=== PATIENT | female | born 1965 | race Caucasian/White ===

== ENCOUNTER 2021-01-09 14:20 | Emergency (ER) | payer OTHER ==
[2021-01-09] MEDS ORDERED: Boostrix 0.5 ML (Tdap) VIAL ONE (15:36)
== END 2021-01-09 15:50 | disposition home or self-care (01) ==
LOC: MADERS 14:20
DX: S61.211A Laceration without foreign body of left index finger without damage to nail, initial encounter (principal); I10 Essential (primary) hypertension; Z86.711 Personal history of pulmonary embolism; Z79.899 Other long term (current) drug therapy; W26.8XXA Contact with other sharp object(s), not elsewhere classified, initial encounter
CPT/HCPCS: 12001; 90471; 90715

== ENCOUNTER 2023-07-01 12:11 | Emergency (ER) | payer OTHER | END 2023-07-01 13:25 | disposition home or self-care (01) | LOC: MADERS 12:11 | DX: S60.011A Contusion of right thumb without damage to nail, initial encounter (principal); W22.8XXA Striking against or struck by other objects, initial encounter ==

== ENCOUNTER 2024-02-29 17:57 | Emergency (ER) | payer OTHER ==
[2024-02-29] MEDS ORDERED: Ketorolac Tromethamine 60 MG/2 ML VIAL ONE (18:26)
[2024-02-29] MEDS ORDERED: HYDROcodone/Acetaminophen 5/325 mg Tablet ONE (18:26)
== END 2024-02-29 19:27 | disposition home or self-care (01) ==
LOC: MADERS 17:57
DX: M54.50 Low back pain, unspecified (principal); M54.6 Pain in thoracic spine; I10 Essential (primary) hypertension; W18.2XXA Fall in (into) shower or empty bathtub, initial encounter
CPT/HCPCS: 72072; 72100; 72170; 96372; J1885

== ENCOUNTER 2024-04-27 13:02 | Emergency (ER) | payer OTHER ==
[2024-04-27] MEDS ORDERED: Lidocaine 1% w/Epinephrine 1:100K 20 ML VIAL ONE (13:27)
[2024-04-27] MEDS ORDERED: HYDROcodone/Acetaminophen 5/325 mg Tablet ONE (13:47)
[2024-04-27] MEDS ORDERED: Bacitracin 1 PK ONE (13:47)
== END 2024-04-27 15:20 | disposition short-term general hospital (02) ==
LOC: MADERS 13:02
DX: S01.01XA Laceration without foreign body of scalp, initial encounter (principal); I10 Essential (primary) hypertension; V89.2XXA Person injured in unspecified motor-vehicle accident, traffic, initial encounter
CPT/HCPCS: 12001; 99284

== ENCOUNTER 2024-05-06 13:22 | Emergency (ER) | payer OTHER | END 2024-05-06 13:51 | disposition home or self-care (01) | LOC: MADERS 13:22 | DX: S01.01XD Laceration without foreign body of scalp, subsequent encounter (principal); F07.81 Postconcussional syndrome; I10 Essential (primary) hypertension; X58.XXXD Exposure to other specified factors, subsequent encounter ==

== ENCOUNTER 2025-04-01 10:15 | Emergency (ER) | payer OTHER | END 2025-04-01 11:00 | disposition home or self-care (01) | LOC: MADERS 10:15 | DX: J02.9 Acute pharyngitis, unspecified (principal); I10 Essential (primary) hypertension | CPT/HCPCS: 87081; 87430; 99283 ==

== ENCOUNTER 2025-08-01 08:52 | Emergency (ER) | payer OTHER ==
[2025-08-01] MEDS ORDERED: Ibuprofen 800 MG TAB ONE (09:30)
== END 2025-08-01 09:59 | disposition home or self-care (01) ==
LOC: MADERS 08:52
DX: M79.672 Pain in left foot (principal); E03.9 Hypothyroidism, unspecified; I10 Essential (primary) hypertension; Z79.899 Other long term (current) drug therapy; Z79.890 Hormone replacement therapy; Z79.01 Long term (current) use of anticoagulants
CPT/HCPCS: 99283